=== PATIENT | male | born 1950 | race Caucasian/White ===

== ENCOUNTER → 2017-06-29 | Outpatient (CLI) | payer MEDICARE ==
[2017-06-29 11:01] LABS: HCT 49.5 % (39.0-53.0); HGB 15.6 gm/dL (13.0-17.5); Hypochromasia Slight; MCH 30.1 pg (25.0-35.0); MCHC 31.5 g/dL (31.0-37.0); MCV 95.5 fL (80.0-100.0); Mean Platelet Volume 7.5; Platelet Count 206 k/uL (150-450); RBC 5.18 m/uL (4.30-5.90); RDW 14.5 % (11.5-15.5); WBC 6.5 k/uL (3.8-10.6)
[2017-06-29 11:12] LABS: Anion Gap 13 mmol/L; Blood Urea Nitrogen 14 mg/dL (9-20); Calcium 9.3 mg/dL (8.4-10.2); Carbon Dioxide 29 mmol/L (22-30); Chloride 101 mmol/L (98-107); Glucose 97 mg/dL (74-99); Potassium 4.7 mmol/L (3.5-5.1); Sodium 143 mmol/L (137-145)
== END | disposition home or self-care (01) ==
LOC: LABWHC1 10:36
PROVIDERS: ATTEND Internal Medicine Clinical Cardiac Electrophysiology
DX: I48.1 Persistent atrial fibrillation (principal); I42.8 Other cardiomyopathies; I49.3 Ventricular premature depolarization
CPT/HCPCS: 36415; 80048; 85027

== ENCOUNTER → 2017-06-30 | Day surgery (SDC) | payer MEDICARE ==
[2017-06-29 12:07] VITALS: BMI 35.6
[~2017-06-30] MED LIST: IV FLUID CONTINUATION 450 ML IV ONE; LACTATED RINGERS 1,000 ML IV SCH; LIDOCAINE 1% INJ 10MG/ML (20 ML MDV) ONE; PROPOFOL 10 MG/ML 20 ML VIAL IV ONE; SODIUM CHLORIDE 0.9% 1,000 ML IV SCH
[2017-06-30 10:33] LABS: Glucose,Whole Blood 119 mg/dL (75-99)
[2017-06-30 10:54] LABS: INR 2.4 (<1.2); Prothrombin Time 21.8 sec (9.0-12.0)
--- NOTE | 2017-06-30 11:54 | P.PCN ---
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 Successful conversion to sinus rhythm. Frequent PVCs noted Frequent PACs noted Plan Continue carvedilol. Metoprolol should be stopped Lisinopril 20 mg by mouth daily Atorvastatin 40 mg daily Stop gemfibrozil Stop lisinopril hydrochlorothiazide Start spironolactone 25 mg by mouth daily Watch potassium CMP, TSH, lipid panels Follow-up Holter monitor and reassessment of LV function while in sinus rhythm If there is no improvement in LV function then consider coronary angiography by evaluation of persistent cardio myopathy Anesthesia: MAC Disposition: same day
[2017-06-30 11:58] VITALS: TEMP 96.8
[2017-06-30 12:04] LABS: Glucose,Whole Blood 117 mg/dL (75-99)
[2017-06-30 12:40] VITALS: RESP 18
[2017-06-30 13:18] LABS: ALT 30 U/L (21-72); AST 22 U/L (17-59); Albumin 3.9 g/dL (3.5-5.0); Alkaline Phosphatase 94 U/L (38-126); Anion Gap 12 mmol/L; Blood Urea Nitrogen 16 mg/dL (9-20); Calcium 9.4 mg/dL (8.4-10.2); Carbon Dioxide 30 mmol/L (22-30); Chloride 103 mmol/L (98-107); Cholesterol 100 mg/dL (<200); Glucose 113 mg/dL (74-99); HDL Cholesterol 33 mg/dL (40-60); LDL Cholesterol,Calculated 51 mg/dL (0-99); Potassium 4.6 mmol/L (3.5-5.1); Sodium 145 mmol/L (137-145); Total Bilirubin 1.1 mg/dL (0.2-1.3); Total Protein 6.7 g/dL (6.3-8.2); Triglycerides 80 mg/dL (<150)
[2017-06-30 13:19] VITALS: PULSE 66
[2017-06-30 13:46] VITALS: BP 152/85
== END ==
LOC: CATHEP 09:59
PROVIDERS: ATTEND Internal Medicine Clinical Cardiac Electrophysiology
DX: I48.1 Persistent atrial fibrillation (principal); I42.9 Cardiomyopathy, unspecified; E11.9 Type 2 diabetes mellitus without complications; I49.3 Ventricular premature depolarization; I44.0 Atrioventricular block, first degree; I10 Essential (primary) hypertension; E78.5 Hyperlipidemia, unspecified; F17.200 Nicotine dependence, unspecified, uncomplicated; Z79.01 Long term (current) use of anticoagulants; Z79.84 Long term (current) use of oral hypoglycemic drugs; Z79.899 Other long term (current) drug therapy
CPT/HCPCS: 92960; 80053; 80061; 84443; 85610; J2001; J2704

== ENCOUNTER 2017-08-23 11:05 | Day surgery (SDC) | payer MEDICARE ==
[2017-08-18 13:51] VITALS: BMI 35.6
[~2017-08-23 11:05] MED LIST changes: +ALPRAZolam 0.25 MG TAB PO PRN; +ASPIRIN 325 MG TAB PO ONE; -IV FLUID CONTINUATION 450 ML IV ONE; -LACTATED RINGERS 1,000 ML IV SCH; -LIDOCAINE 1% INJ 10MG/ML (20 ML MDV) ONE; -PROPOFOL 10 MG/ML 20 ML VIAL IV ONE; -SODIUM CHLORIDE 0.9% 1,000 ML IV SCH; +SODIUM CHLORIDE 0.9% 1,000 ML in EMPTY BAG 1 BAG IV ONE
[2017-08-23 11:34] LABS: Glucose,Whole Blood 124 mg/dL (75-99)
[2017-08-23 11:47] LABS: Basophils # (A) 0.1 k/uL (0-0.2); Basophils % (A) 1 %; Eosinophils # (A) 0.1 k/uL (0-0.7); Eosinophils % (A) 2 %; HCT 49.2 % (39.0-53.0); HGB 16.3 gm/dL (13.0-17.5); Lymphocytes # (A) 1.8 k/uL (1.0-4.8); Lymphocytes % (A) 24 %; MCH 30.6 pg (25.0-35.0); MCHC 33.2 g/dL (31.0-37.0); MCV 92.4 fL (80.0-100.0); Mean Platelet Volume 7.7; Monocytes # (A) 0.5 k/uL (0-1.0); Monocytes % (A) 6 %; Neutrophils # (A) 5.1 k/uL (1.3-7.7); Neutrophils % (A) 66 %; Platelet Count 187 k/uL (150-450); RBC 5.33 m/uL (4.30-5.90); RDW 15.3 % (11.5-15.5); WBC 7.7 k/uL (3.8-10.6)
[2017-08-23] MEDS ORDERED: LIDOCAINE 1% INJ 10MG/ML (20 ML MDV) ONE (11:54)
[2017-08-23] MEDS ORDERED: MIDAZOLAM 2 MG/2 ML VIAL ONE (11:54)
[2017-08-23] MEDS ORDERED: fentaNYL (PF) 50 MCG/ML 2 ML AMP ONE (11:55)
[2017-08-23 11:57] LABS: Anion Gap 9 mmol/L; Blood Urea Nitrogen 22 mg/dL (9-20); Calcium 9.2 mg/dL (8.4-10.2); Carbon Dioxide 26 mmol/L (22-30); Chloride 105 mmol/L (98-107); Glucose 125 mg/dL (74-99); Potassium 5.4 mmol/L (3.5-5.1); Sodium 140 mmol/L (137-145)
[2017-08-23] MEDS ORDERED: IV FLUID CONTINUATION 900 ML IV ONE (12:02)
[2017-08-23] MEDS: fentaNYL (PF) 50 MCG/ML 2 ML AMP IV ONE ×2 (12:02→13:21)
[2017-08-23] MEDS ORDERED: MIDAZOLAM 2 MG/2 ML VIAL IVP ONE (12:02)
[2017-08-23] MEDS ORDERED: LIDOCAINE 1% INJ 10MG/ML (20 ML MDV) SQ ONE (12:08)
[2017-08-23] MEDS ORDERED: BIVALIRUDIN 250 MG in SODIUM CHLORIDE 0.9% 35 ML IV ONE (12:50)
[2017-08-23] MEDS ORDERED: BIVALIRUDIN BOLUS 250 MG/50 ML IV ONE (12:50)
[2017-08-23] MEDS ORDERED: ADENOSINE 180 MG in SODIUM CHLORIDE 0.9% 30 ML IVP ONE (13:00)
--- NOTE | 2017-08-23 13:03 | CC ---
CARDIAC CATHETERIZATION REPORT Mr. Loza is a patient being followed by Dr. Valdivia. Patient has a history of chronic atrial fibrillation, multiple PVCs and short runs of nonsustained ventricular tachycardia. The patient's stress test was inconclusive in the past because of the patient's morbid obesity. The patient was advised cardiac catheterization for definitive diagnosis. PROCEDURE: The right groin was prepped and draped in the usual manner and the skin was infiltrated with 2% Xylocaine. The right femoral artery was entered using Seldinger technique. A #6- Polish sheath was placed in. Selective coronary angiography was then performed in multiple projections and the left ventricular pressures were obtained. Patient tolerated the procedure well. SELECTIVE CORONARY ANGIOGRAPHY: Left main coronary artery is normal and patent. LAD is a good caliber blood vessel, and has mild disease in the mid LAD. There is no hemodynamically significant stenosis. Circumflex coronary artery is a good caliber blood vessel and codominant in distribution. Proximal and mid circumflex coronary artery have mild atheromatous abnormality. The right coronary artery is a good caliber blood vessel. The mid RCA has a smooth narrowing of about 50-60% and distal RCA has about 60-70% stenosis. Left ventricular end-diastolic pressure is 18-20 mmHg prior to angiography. FINAL IMPRESSION: This study shows a 50-60% stenosis in the mid RCA and 60-70% stenosis in the distal RCA. There are mild atheromatous abnormalities in the circumflex and LAD. The films were reviewed with Dr. Mesa and he will proceed with FFR and possible stent placement. MMODL / IJN: [id number] /
[2017-08-23] MEDS ORDERED: IOPAMIDOL-370 125ML BTL INJ ONE (13:04)
[2017-08-23] MEDS ORDERED: IOPAMIDOL-370 100ML BTL INJ ONE (13:07)
[2017-08-23] MEDS ORDERED: HEPARIN SODIUM 1,000 UN/ML (10ML VL) ONE (13:09)
[2017-08-23] MEDS ORDERED: RX INFO: IV CONTRAST WAS GIVEN 1 EACH MISC MISCELLANE PRN (13:15)
[2017-08-23] MEDS ORDERED: SODIUM CHLORIDE 0.9% 1,000 ML IV SCH (13:15)
--- NOTE | 2017-08-23 16:06 | PCN ---
PROCEDURE NOTE PROCEDURE PERFORMED: Fractional flow reserve (FFR) of the right coronary artery. DATE OF SERVICE: 08/23/2017 PERFORMING PHYSICIAN: Kike Mesa MD, manufacturing maintenance mechanic. INDICATION: This is a pleasant 67-year-old gentleman who sees Dr. Valdivia in the office as an outpatient who was experiencing episodes of non-sustained ventricular tachycardia. Severe underlying coronary artery disease was suspected. Because of that, the patient was scheduled to undergo heart catheterization by Dr. Rosales. The heart catheterization revealed 2 intermediate to severe lesions involving the mid RCA. We recommended proceeding with FFR for further assessment of the severity of these 2 lesions. APPROACH: Right common femoral artery. COMPLICATIONS: None. LEVEL OF SEDATION: Moderate with sedation length of 16 minutes. PROCEDURE DESCRIPTION: After diagnostic heart catheterization was performed by Dr. Tu Rosales and after reviewing the angiogram, we decided to proceed with an FFR of the RCA. Anticoagulation was initiated using Angiomax. Subsequently, after zeroing the Doppler wire and equalizing between the Doppler wire and the guiding catheter, which was a JR4 guiding catheter, we did an FFR per IV adenosine infusion. The FFR came in to be 0.95, which is non-ischemic. CONCLUSION: 1. Intermediate to severe disease involving the mid RCA in 2 lesions. 2. Fractional flow reserve FFR of the RCA was performed and came in to be non-ischemic at 0.95. POST-PROCEDURE MANAGEMENT: 1. Maximize medical treatment. 2. High-intensity statin. 3. The patient is going to follow up with Dr. Valdivia. MMODL / IJN: [id number] /
[2017-08-23 18:45] LABS: INR 1.2 (<1.2); Prothrombin Time 11.6 sec (9.0-12.0)
[2017-08-23] MEDS ORDERED: HYDROcodone/APAP 10-325MG 1 EACH TAB PO PRN (19:19)
[2017-08-23] MEDS ORDERED: WARFARIN 7.5 MG TAB PO SCH (20:00)
[2017-08-23 20:07] VITALS: RESP 18
[2017-08-23] MEDS ORDERED: ALLOPURINOL 300 MG TAB PO SCH (21:00)
[2017-08-23] MEDS: CARVEDILOL 3.125 MG TAB PO SCH (21:38)
[2017-08-24 06:30] VITALS: PULSE 60
[2017-08-24] MEDS: CARVEDILOL 3.125 MG TAB PO SCH (06:30)
[2017-08-24] MEDS ORDERED: LISINOPRIL 20 MG TAB PO SCH (09:00)
[2017-08-24] MEDS ORDERED: glipiZIDE 5 MG TAB PO SCH (09:00)
[2017-08-24] MEDS ORDERED: ATORVASTATIN 40 MG TAB PO SCH (09:00)
[2017-08-24] MEDS ORDERED: SERTRALINE 50 MG TAB PO SCH (09:00)
[2017-08-24] MEDS ORDERED: FUROSEMIDE 40 MG TAB PO SCH (09:00)
[2017-08-24] MEDS ORDERED: SPIRONOLACTONE 25 MG TAB PO SCH (09:00)
[2017-08-24 11:05] VITALS: BP 126/70; TEMP 97.4
--- NOTE | 2017-08-24 11:38 | P.DS ---
Providers Date of admission: August 232017 Attending physician: Serge Rosales Primary care physician: [facility] Course: This is a pleasant 67-year-old gentleman who sees Dr. Valdivia in the office on regular basis who was experiencing intermittent episodes of nonsustained ventricular tachycardia. A heart catheterization was recommended. The patient did undergo a heart catheterization by Dr. VC Rosales yesterday and that revealed intermediate to severe disease involving the RCA in the mid portion. The patient underwent fractional flow reserve of the RCA and that came in to be nonischemic at 0.95. On follow-up with him today, he denies having any chest pain or discomfort or shortness of breath. No dizziness or lightheadedness or any heart racing or fluttering. The procedure yesterday was complicated by right groin hematoma but the patient the groin seems to be soft and nontender and no discrete hematoma noted. From a cardiovascular standpoint of view, the patient can be discharged home. He will be following with Dr. Valdivia in the office as an outpatient. Plan - Discharge Summary Discharge Rx Participant: No New Discharge Prescriptions: Continue ALPRAZolam [Xanax] 0.25 mg PO BID glipiZIDE [Glucotrol] 5 mg PO QAM Sertraline [Zoloft] 50 mg PO DAILY Furosemide [Lasix] 40 mg PO DAILY Warfarin [Coumadin] 7.5 mg PO SUTUTHSA Warfarin [Coumadin] 5 mg PO MOWEFR HYDROcodone/APAP 10-325MG [[place] 10-325] 1 tab PO Q6HR PRN PRN Reason: Pain Carvedilol [Coreg] 3.125 mg PO BID Atorvastatin [Lipitor] 40 mg PO DAILY Allopurinol [Zyloprim] 300 mg PO HS Lisinopril [Zestril] 20 mg PO DAILY Spironolactone [Aldactone] 25 mg PO DAILY Ergocalciferol (Vitamin D2) [Vitamin D2] 50,000 unit PO DUNNE Aspirin 325 mg PO ONCE Discontinued metFORMIN HCL [Glucophage] 500 mg PO BID Discharge Medication List ALPRAZolam [Xanax] 0.25 mg PO BID 06/07/15 [History] Furosemide [Lasix] 40 mg PO DAILY 06/09/15 [History] Sertraline [Zoloft] 50 mg PO DAILY 06/09/15 [History] glipiZIDE [Glucotrol] 5 mg PO QAM 06/09/15 [History] Allopurinol [Zyloprim] 300 mg PO HS 06/29/17 [History] Atorvastatin [Lipitor] 40 mg PO DAILY 06/29/17 [History] Carvedilol [Coreg] 3.125 mg PO BID 06/29/17 [History] HYDROcodone/APAP 10-325MG [[place] 10-325] 1 tab PO Q6HR PRN 06/29/17 [History] Lisinopril [Zestril] 20 mg PO DAILY 06/29/17 [History] Warfarin [Coumadin] 5 mg PO MOWEFR 06/29/17 [History] Warfarin [Coumadin] 7.5 mg PO SUTUTHSA 06/29/17 [History] Ergocalciferol (Vitamin D2) [Vitamin D2] 50,000 unit PO DUNNE 08/18/17 [History] Spironolactone [Aldactone] 25 mg PO DAILY 08/18/17 [History] Aspirin 325 mg PO ONCE 08/23/17 [History] Follow up Appointment(s)/Referral(s): Richard Valdivia MD [STAFF PHYSICIAN] - 08/31/17 3:00 pm Patient Instructions/Handouts: *Surgery [facility] - After Heart Catheterization - [facility] Instructions, Heart Healthy Diet (DC)
[2017-08-24] MEDS ORDERED: WARFARIN 5 MG TAB PO SCH (18:00)
[2017-08-28] MEDS ORDERED: ERGOCALCIFEROL 50,000 UNIT CAP PO SCH (09:00)
== END 2017-08-24 13:04 | disposition home or self-care (01) ==
LOC: CATHCVL 11:05 → 6SEL 13:10 → CATHCVL 08-24 13:04
PROVIDERS: ATTEND Internal Medicine Cardiovascular Disease
DX: I25.10 Atherosclerotic heart disease of native coronary artery without angina pectoris (principal); I97.630 Postprocedural hematoma of a circulatory system organ or structure following a cardiac catheterization; I47.2 Ventricular tachycardia; I48.1 Persistent atrial fibrillation; I49.3 Ventricular premature depolarization; I10 Essential (primary) hypertension; I42.9 Cardiomyopathy, unspecified; E11.9 Type 2 diabetes mellitus without complications; E78.5 Hyperlipidemia, unspecified; E66.01 Morbid (severe) obesity due to excess calories; Z68.35 Body mass index [BMI] 35.0-35.9, adult; Z79.01 Long term (current) use of anticoagulants; Z79.84 Long term (current) use of oral hypoglycemic drugs; Z79.899 Other long term (current) drug therapy; Z87.891 Personal history of nicotine dependence
CPT/HCPCS: 93571; 93458; 80048; 85025; 85610; C1887; C1894; C1769; J2250; J2001; J3010; J0583; J0153; Q9967 ×2

== ENCOUNTER → 2018-06-08 | Outpatient (CLI) | payer MEDICARE | END | disposition home or self-care (01) | LOC: LABWHC1 12:15 | PROVIDERS: ATTEND Podiatrist Foot & Ankle Surgery | DX: Z01.812 Encounter for preprocedural laboratory examination (principal) | CPT/HCPCS: 36415; 82565; 84520 ==

== ENCOUNTER → 2018-07-06 | Outpatient (CLI) | payer MEDICARE ==
--- NOTE | 2018-07-06 14:43 | US ---
EXAMINATION TYPE: US venous doppler duplex LE BI DATE OF EXAM: 07/06/2018 2:36 PM COMPARISON: NONE CLINICAL HISTORY: L97.515,M86.671 Non-pressure chronic ulcer of other part of. Non-healing wound righ t ball of foot x 2 years SIDE PERFORMED: Bilateral TECHNIQUE: The lower extremity deep venous system is examined utilizing real time linear array sonog dez with graded compression, doppler sonography and color-flow sonography. VESSELS IMAGED: External Iliac Vein (EIV) Common Femoral Vein Deep Femoral Vein Greater Saphenous Vein * Femoral Vein Popliteal Vein Small Saphenous Vein * Proximal Calf Veins (* superficial vessels) Right Leg: Negative for DVT Left Leg: Negative for DVT IMPRESSION: 1. No diagnostic evidence of DVT as visualized.
== END | disposition home or self-care (01) ==
LOC: RADUSWWP 13:30
PROVIDERS: ATTEND Family Medicine
DX: L97.515 Non-pressure chronic ulcer of other part of right foot with muscle involvement without evidence of necrosis (principal); M86.671 Other chronic osteomyelitis, right ankle and foot
CPT/HCPCS: 93922; 93923; 93970

== ENCOUNTER → 2018-08-18 | Outpatient (CLI) | payer MEDICARE ==
--- NOTE | 2018-08-18 14:59 | XR ---
EXAMINATION TYPE: XR foot limited RT DATE OF EXAM: 08/18/2018 COMPARISON: NONE HISTORY: 68-year-old male with nonhealing wound across plantar MTP joints. TECHNIQUE: 2 views FINDINGS: There is osteopenia. No discrete osseous destruction or erosions are identified. Hammertoes. No acute fracture, subluxation, or dislocation seen. IMPRESSION: Osteopenia and hammertoes. No acute osseous abnormality seen.
== END | disposition home or self-care (01) ==
LOC: RADXRMAIN 11:38
PROVIDERS: ATTEND Family Medicine
DX: M85.88 Other specified disorders of bone density and structure, other site (principal); M20.41 Other hammer toe(s) (acquired), right foot; S90.121A Contusion of right lesser toe(s) without damage to nail, initial encounter

== ENCOUNTER 2018-09-29 09:32 | Day surgery (SDC) | payer MEDICARE ==
[2018-09-28 13:11] VITALS: BMI 36.3
[~2018-09-29 09:32] MED LIST changes: -ALPRAZolam 0.25 MG TAB PO PRN; -ASPIRIN 325 MG TAB PO ONE; -SODIUM CHLORIDE 0.9% 1,000 ML in EMPTY BAG 1 BAG IV ONE; +VANCOMYCIN 1,000 MG in SODIUM CHLORIDE 0.9% 250 ML IVPB ONE
[2018-09-29 10:20] VITALS: RESP 16; TEMP 98
[2018-09-29 10:30] LABS: Glucose,Whole Blood 153 mg/dL (75-99)
[2018-09-29 10:43] LABS: INR 1.7 (<1.2); Prothrombin Time 16.6 sec (9.0-12.0)
[2018-09-29] MEDS ORDERED: LIDOCAINE 1% INJ 10MG/ML (20 ML MDV) SQ ONE (11:04)
--- NOTE | 2018-09-29 12:48 | IR ---
EXAMINATION TYPE: IR cvc insert >=5 years DATE OF EXAM: 09/29/2018 COMPARISON: NONE CLINICAL HISTORY: Infection Needs long-term intravenous access for antibiotics. PROCEDURE: After informed consent, the skin overlying the right basilic vein was localized with ultrasound and n oted to be compressible and patent. An ultrasound image was obtained and submitted on the patient's chart. The overlying skin was prepped and draped and Lidocaine was used for local anesthesia. A ski n kelley was made with a scalpel. Access was gained to the vein under ultrasound guidance with a 21 ga uge needle and a 0.018 inch wire was advanced. Access site was dilated with Peel-Away sheath and cat heter tailored to the appropriate length and advanced such that the distal tip is at the cavoatrial j unction. Spot image was obtained verifying placement. Catheter was fixed to the skin and a sterile dressing was placed following hemostasis. Catheter was aspirated and flushed with saline. Patient w as discharged in stable condition without complication. Maximal barrier technique is utilized. Ultra sound image is documented on the chart. Ultrasound used with sterile technique. Fluoro time and fluoroscopic images submitted to document procedure: 0.9 minutes fluoroscopy time, 42 5 intraoperative C-arm images. IMPRESSION: STATUS POST ULTRASOUND AND FLUOROSCOPIC GUIDED PICC LINE PLACEMENT, READY FOR USE. THIS PROCEDURE WAS PERFORMED BY THE UNDERSIGNED.
[2018-09-29 17:18] VITALS: BP 130/66; PULSE 78
== END 2018-09-29 13:55 | disposition home or self-care (01) ==
LOC: CATHCVL 09:32
PROVIDERS: ATTEND Radiology Diagnostic Radiology
DX: E11.621 Type 2 diabetes mellitus with foot ulcer (principal); L97.515 Non-pressure chronic ulcer of other part of right foot with muscle involvement without evidence of necrosis; M86.671 Other chronic osteomyelitis, right ankle and foot; E66.01 Morbid (severe) obesity due to excess calories; Z68.36 Body mass index [BMI] 36.0-36.9, adult; M20.41 Other hammer toe(s) (acquired), right foot
CPT/HCPCS: 36573; 85610; C1751; C1769; J2001

== ENCOUNTER → 2019-11-01 | Outpatient (CLI) | payer MEDICARE ==
[2019-11-01 15:35] LABS: African American GFR (CKD) 99.9 (60.0-200.0); Anion Gap 4.2 mmol/L (4.00-12.00); BUN/Creat Ratio 27.78 Ratio (12.00-20.00); Calcium 9.1 mg/dL (8.7-10.3); Carbon Dioxide 30.8 mmol/L (21.6-31.8); Magnesium 1.9 mg/dL (1.5-2.4); Non-African American GFR(CKD) 86.2 (60.0-200.0); Potassium 4.4 mmol/L (3.5-5.5)
== END | disposition home or self-care (01) ==
LOC: LABWHC1 10:29
PROVIDERS: ATTEND Physician Assistant
DX: I10 Essential (primary) hypertension (principal); I42.9 Cardiomyopathy, unspecified
CPT/HCPCS: 36415; 80048; 83735

== ENCOUNTER 2021-06-16 07:33 | Day surgery (SDC) | payer MEDICARE ==
[2021-06-11 14:31] VITALS: BMI 34.9
[~2021-06-16 07:33] MED LIST changes: +LACTATED RINGERS 1,000 ML IV SCH; +LIDOCAINE 1% (10MG/ML) FOR IV START INTRADERMA PRN; -VANCOMYCIN 1,000 MG in SODIUM CHLORIDE 0.9% 250 ML IVPB ONE
[2021-06-16 07:56] VITALS: RESP 16; TEMP 97.2
[2021-06-16 08:16] LABS: Glucose,Whole Blood 145 mg/dL (75-99)
[2021-06-16] MEDS ORDERED: PROPOFOL 10 MG/ML 20 ML VIAL IV ONE (08:25)
--- NOTE | 2021-06-16 08:29 | P.GSHP ---
History of Present Illness H&P Date: 06/16/21 Chief Complaint: Colon cancer screening 71-year-old male here today for colonoscopy. Last colonoscopy 12 years ago. No bowel complaints. No family history of colon cancer. Past Medical History Past Medical History: Atrial Fibrillation, Diabetes Mellitus, Hyperlipidemia, Hypertension, Musculoskeletal Disorder, Osteoarthritis (OA) Additional Past Medical History / Comment(s): hx gout; bad back, knees, shou lder. History of Any Multi-Drug Resistant Organisms: None Reported Past Surgical History: Orthopedic Surgery Additional Past Surgical History / Comment(s): Lt foot hammertoe, Rt foot 2nd toe removed, rt knee surgery-LIGAMENT REPAIR, left knee surgery LIGAMENT REPAIR, Rt shoulder surg, COLONOSCOPY, left elbow surg, cardioversion Past Anesthesia/Blood Transfusion Reactions: No Reported Reaction Smoking Status: Current every day smoker - Past Family History Mother Family Medical History: Congestive Heart Failure (CHF) Additional Family Medical History / Comment(s): OBESITY Father Family Medical History: Osteoarthritis (OA) Additional Family Medical History / Comment(s): BACK PROBLEMS Medications and Allergies Home Medications Medication Instructions Recorded Confirmed Type ALPRAZolam [Xanax] 0.25 mg PO BID 06/07/15 06/16/21 History Furosemide [Lasix] 40 mg PO DAILY 06/09/15 06/16/21 History Sertraline [Zoloft] 50 mg PO DAILY 06/09/15 06/16/21 History glipiZIDE [Glucotrol] 5 mg PO BID 06/09/15 06/16/21 History Atorvastatin [Lipitor] 80 mg PO DAILY 06/29/17 06/16/21 History Warfarin [Coumadin] 5 mg PO MOWEFR 06/29/17 06/16/21 History Warfarin [Coumadin] 7.5 mg PO SUTUTHSA 06/29/17 06/16/21 History allopurinoL [Zyloprim] 300 mg PO PC-SUPPER 06/29/17 06/16/21 History carvediloL [Coreg] 3.125 mg PO PC-SUPPER 06/29/17 06/16/21 History Spironolactone [Aldactone] 25 mg PO DAILY 08/18/17 06/16/21 History HYDROcodone/APAP 10-325MG [[place] 1 tab PO Q6H PRN 06/21/18 06/16/21 History 10-325] Aspirin [Adult Low Dose Aspirin EC] 81 mg PO DAILY 06/11/21 06/16/21 History Carvedilol [Coreg] 6.25 mg PO QAM 06/11/21 06/16/21 History Enoxaparin [Lovenox] 120 mg SQ DIRECTED 06/11/21 06/16/21 History Valsartan [Diovan] 160 mg PO DAILY 06/11/21 06/16/21 History Allergies Allergy/AdvReac Type Severity Reaction Status Date / Time No Known Allergies Allergy Verified 06/16/21 08:01 Surgical - Exam Vital Signs Temp Pulse Resp BP Pulse Ox 97.2 F L 57 L 16 138/96 95 06/16/21 07:46 06/16/21 07:46 06/16/21 07:46 06/16/21 07:46 06/16/21 07:46 Physical exam: General: Well-developed, well-nourished HEENT: Normocephalic, sclerae nonicteric Abdomen: Nontender, nondistended Extremities: No edema Neuro: Alert and oriented Results - Labs Abnormal Lab Results - Last 24 Hours (Table) 06/16/21 Range/Units 08:10 POC Glucose (mg/dL) 145 H (75-99) mg/dL Assessment and Plan (1) Colon cancer screening Narrative/Plan: Will proceed with colonoscopy at this time Current Visit: Yes Status: Acute Code(s): Z12.11 - ENCOUNTER FOR SCREENING FOR MALIGNANT NEOPLASM OF COLON SNOMED Code(s): 265149969
--- NOTE | 2021-06-16 08:50 | P.PCN ---
Date of Procedure: 06/16/21 Procedure(s) Performed: PREOPERATIVE DIAGNOSIS: Colon cancer screening POSTOPERATIVE DIAGNOSIS: Normal exam PROCEDURE: Colonoscopy ANESTHESIA: MAC SURGEON: Edwin Nichols M.D. SPECIMENS: None ENDOSCOPIC PROCEDURE: The patient was placed on the endoscopy table in the left decubitus position. The Olympus colonoscope was inserted into the anus and passed under direct visualization to the base of the cecum. The appendiceal orifice was visualized. From that point the scope was slowly withdrawn inspecti ng all surfaces carefully. There were no neoplastic inflammatory or polypoid lesions throughout the cecum, ascending, transverse, descending, sigmoid and rectum. There was no visible diverticulosis noted. His prep was slightly suboptimal. Digital rectal examination was normal. The patient was taken to the recovery room in stable condition per anesthesia guidelines. RECOMMENDATIONS: Resume diet. Follow-up colonoscopy 10 years.
[2021-06-16 09:01] VITALS: BP 135/70; PULSE 50
== END 2021-06-16 09:34 | disposition home or self-care (01) ==
LOC: ORWHC2ENDO 07:33
PROVIDERS: ATTEND Surgery
DX: Z12.11 Encounter for screening for malignant neoplasm of colon (principal); E11.9 Type 2 diabetes mellitus without complications; E78.5 Hyperlipidemia, unspecified; F17.200 Nicotine dependence, unspecified, uncomplicated; I10 Essential (primary) hypertension; I48.91 Unspecified atrial fibrillation; M10.9 Gout, unspecified; M19.90 Unspecified osteoarthritis, unspecified site; Z79.82 Long term (current) use of aspirin; Z79.84 Long term (current) use of oral hypoglycemic drugs; Z82.49 Family history of ischemic heart disease and other diseases of the circulatory system; Z83.49 Family history of other endocrine, nutritional and metabolic diseases
CPT/HCPCS: G0121; J2704

== ENCOUNTER → 2021-10-06 | Outpatient (CLI) | payer MEDICARE ==
--- NOTE | 2021-10-07 12:31 | US ---
EXAMINATION TYPE: US venous doppler duplex LE LT DATE OF EXAM: 10/06/2021 12:14 PM COMPARISON: NONE CLINICAL HISTORY: 71-year-old male M79.662 Pain left leg, R22.42 Swelling left leg. SIDE PERFORMED: Left TECHNIQUE: The lower extremity deep venous system is examined utilizing real time linear array sonog dez with graded compression, doppler sonography and color-flow sonography. FINDINGS: VESSELS IMAGED: Common Femoral Vein Deep Femoral Vein Greater Saphenous Vein * Femoral Vein Popliteal Vein Small Saphenous Vein * Proximal Calf Veins (* superficial vessels) Left Leg: Negative for DVT IMPRESSION: No evidence for DVT within the left lower extremity imaged from the groin to the upper calf.
== END | disposition home or self-care (01) ==
LOC: RADUSWWP 11:38
PROVIDERS: ATTEND Internal Medicine
DX: M79.662 Pain in left lower leg (principal); R22.42 Localized swelling, mass and lump, left lower limb

== ENCOUNTER → 2022-10-04 | Outpatient (CLI) | payer MEDICARE ==
[2022-10-04 20:07] LABS: Blood Urea Nitrogen 35.8 mg/dL (9.0-27.0); Calcium 9.4 mg/dL (8.7-10.3); Carbon Dioxide 25.9 mmol/L (21.6-31.8); Chloride 102 mmol/L (96-109); Glucose 102 mg/dL (70-110); Magnesium 2.3 mg/dL (1.5-2.4); Potassium 4.5 mmol/L (3.5-5.5); Sodium 140 mmol/L (135-145)
== END | disposition home or self-care (01) ==
LOC: LABWHC1 10:48
PROVIDERS: ATTEND Internal Medicine Interventional Cardiology
DX: I10 Essential (primary) hypertension (principal)
CPT/HCPCS: 36415; 80048; 83735

== ENCOUNTER → 2024-01-02 | Outpatient (CLI) | payer MEDICARE ==
[2024-01-02 16:14] LABS: BUN/Creat Ratio 41.42 Ratio (12.00-20.00); Blood Urea Nitrogen 49.7 mg/dL (9.0-27.0); Chloride 101 mmol/L (96-109); Glucose 124 mg/dL (70-110); Potassium 4.9 mmol/L (3.5-5.5); Sodium 137 mmol/L (135-145)
[2024-01-02 16:15] LABS: ALT 21 U/L (10-49); AST 25 U/L (14-35); Albumin 4.1 g/dL (3.8-4.9); Albumin/Globulin Ratio 1.37 Ratio (1.60-3.17); Alkaline Phosphatase 92 U/L (41-126); Calcium 9.2 mg/dL (8.7-10.3); Carbon Dioxide 22.3 mmol/L (21.6-31.8); Magnesium 2.1 mg/dL (1.5-2.4); Total Bilirubin 0.4 mg/dL (0.3-1.2); Total Protein 7.1 g/dL (6.2-8.2)
== END | disposition home or self-care (01) ==
LOC: LABWHC1 10:59
PROVIDERS: ATTEND Internal Medicine Interventional Cardiology
DX: I10 Essential (primary) hypertension (principal)
CPT/HCPCS: 36415; 80053; 83735

== ENCOUNTER → 2024-09-10 | Outpatient (CLI) | payer MEDICARE ==
--- NOTE | 2024-09-11 10:12 | NM ---
EXAMINATION TYPE: NM bone 3 phase DATE OF EXAM: 09/10/2024 COMPARISON: Most recent plain film comparison of 09/28/2018. CLINICAL INDICATION: Male, 74 years old with history of I65.23 STENOSIS OF BILATERAL CAROTID ARTERIES ; Triple phase bone scintigraphy was performed following the injection of 25.5 mCi Tc 99m MDP. Immedia te images and 5.5 hours post injection images acquired. FINDINGS: Blood flow: There is increased radiotracer to the distal right foot. Blood pool: There is increased radiotracer in the region of the third or fourth right foot distal dig it. Static images: Increased radiotracer accumulation is in region of the fourth distal digit. Some mild increased uptake may be along the distal digits bilaterally IMPRESSION: Increased radiotracer in the distal lateral right foot and 3 phase bone scan suggestive for underlyin g osteomyelitis. Plain film correlation recommended. A Yellow level critical message alert has been initiated for Brayan Montoya DO via the [employer] Critical Results System on 09/11/2024 10:10 AM. This message alert has been sent to Brayan ricketts DO via the preferences provided by the clinician for the receipt of Radiology Critical Findings . Message ID [id number]. [facility], Workstation: [id number], 09/11/2024 10:10 AM
== END | disposition home or self-care (01) ==
LOC: RADNMMAIN 07:12
PROVIDERS: ATTEND Thoracic Surgery (Cardiothoracic Vascular Surgery)
DX: E08.621 Diabetes mellitus due to underlying condition with foot ulcer (principal); L97.512 Non-pressure chronic ulcer of other part of right foot with fat layer exposed; F17.210 Nicotine dependence, cigarettes, uncomplicated
CPT/HCPCS: 78315; A9503